=== PATIENT | female | born 1985 | race Caucasian/White ===

== ENCOUNTER 2025-02-05 12:28 | Emergency (ER) | payer MEDICAID ==
[~2025-02-05] VITALS: Ht 162.6 cm; Wt 99.2 kg
[2025-02-05 12:40] VITALS: TEMP 97.8
--- NOTE | 2025-02-05 12:49 | Physician Documentation ---
History of Present Illness ~ Chief Complaint: Cough Stated Complaint: COUGH Time Seen by MD: 13:38 HPI This is a 40-year-old female who presents to the emergency department reporting symptoms of illness for the last two months. These began with chest pain, shortness of breath, fever. She has had multiple COVID and flu tests that have been negative. She is concerned she may have valley fever, as she visits the area often. She feels otherwise well today, but the cough is persistent, keeps her up at night. Medication Reconciliation Allergies: Coded Allergies: No Known Allergies (Unverified , 02/05/25) Scheduled Benzonatate* (Benzonatate*), 1 CAP PO Q8H Guaifenesin (Mucinex), 1 TAB PO Q12H Scheduled PRN Albuterol Sulfate (Ventolin Hfa), 2 PUFFS INH Q4HPRN PRN for wheezing Review of Systems ROS As stated above in the HPI, otherwise all systems are reviewed and negative. Physical Exam General Appearance General: Alert, no apparent distress. HEENT: PERRL, EOMI, no injection, moist mucous membranes. Neck: Full range of motion. Respiratory: Lungs clear, no respiratory distress. Chest: No accessory muscle use. Cardiovascular: Regular rate and rhythm, no murmurs. Gastrointestinal: Soft, nontender, nondistended. Bowels sounds present. Extremities: Normal range of motion, no deformity. Neurologic: Oriented x4. Psychiatric: Normal mood and affect. Skin: Normal color, warm and dry. No edema, no ecchymosis. Progress Results/Orders Results/Orders Orders - LESLY JAMES RISK MODELER Chest,Two Views (02/05/25 12:54) Completed Orders - LESLY JAMES RISK MODELER Chest,Two Views (02/05/25 12:54) Vital Signs 02/05/25 02/05/25 02/05/25 12:40 13:40 13:40 Temp 97.8 Pulse 74 100 Resp 18 18 18 B/P (MAP) 143/76 118/76 (90) Pulse Ox 99 99 O2 Flow Rate 0 EKG/XRAY/CT/US/VASC/MRI Chest X-Ray : Additional Comments [address], [facility] [address] DIAGNOSTIC RADIOLOGY Patient: RAYNE EUGENE Medical Record: [id number] [facility] : 1985, Age: 40 Sex: Female Location: ER Patient Status: [facility] ER Service Date/Time: 02/05/25/ 1254 Ordering Physician: LESLY JAMES NP Exam: CHEST,TWO VIEWS CLINICAL HISTORY: cough x 2 mo TECHNIQUE: Chest 2 views of the chest were obtained. COMPARISON: None FINDINGS: The heart size and pulmonary vasculature are normal. The lungs are clear. No pleural effusion is present. IMPRESSION: NO ACUTE CARDIOPULMONARY PROCESS. Electronically Signed by:AMY CÁRDENAS MD Date & Time: 02/05/25 1301 Dictated by: AMY CÁRDENAS MD Dictation date and time: 02/05/25 1252 Primary Care Provider: NO PRIMARY CARE PROVIDER cc: LESLY JAMES RISK MODELER ~ Medical Decision Making Differential Dx:Considerations: Include: Allergic rhinitis, Influenza, Otitis media, Peritonsillar abscess, Pharyngitis-Diphtheria, Pharyngitis-Streptoccal, Pharyngitis-Viral, Pneumonia, Pnuemonitis, Sinusitis, URI Differential Diagnosis This is a 40-year-old female who presented to the emergency department due to concerns that she may have valley fever due to her frequent travels to the [place] area. Chest x-ray with no evidence of pneumonia. Discussed with the patient that while I can alleviate her cough with medications, I can not treat her for valley fever without the appropriate testing. This will need to go through her primary care provider. If it is valley fever, there was also a chance that the patient will improve without treatment. She is to follow up with the primary care provider or return if worse. Departure Time of Disposition: 13:38 Disposition: 01 HOME / SELF CARE / HOMELESS Impression: Primary Impression: Cough Condition: Stable Discharge Instructions: Cough, Adult Additional Instructions: Chest xray did not show pneumonia. Treatment of Valley fever involves a long course (4-6 weeks) of antifungal therapy. For this reason, testing is necessary to confirm this diagnosis. Some people recover and never need the medications. I am treating you for cough. See your primary care soon for Valley Fever testing. Return if worse. Referrals: NO PRIMARY CARE PROVIDER (PCP) Prescriptions Albuterol Sulfate (Ventolin Hfa) 90 Mcg Hfa.aer.ad 2 PUFFS INH Q4HPRN PRN for wheezing for 30 Days, #18 GM 0 Refills Prov: LESLY JAMES NP 02/05/25 Guaifenesin (Mucinex) 1,200 Mg Tbbp.12hr 1 TAB PO Q12H for cough for 15 Days, #30 TAB 0 Refills Prov: LESLY JAMES NP 02/05/25 Benzonatate* (Benzonatate*) 100 Mg Capsule 1 CAP PO Q8H for cough for 10 Days, #30 CAP Prov: LESLY JAMES NP 02/05/25 Education Educated: Patient Educated regarding: diagnosis, treatment, prognosis, need for follow up Signature Scribe Signature: x Attestation: The note accurately reflects work and decisions made by me.Lesly Hill NP 02/05/25 12:49 LESLY JAMES NP Feb 05, 2025 12:49
--- NOTE | 2025-02-05 13:03 | RADIOLOGY REPORT ---
CLINICAL HISTORY: cough x 2 mo TECHNIQUE: Chest 2 views of the chest were obtained. COMPARISON: None FINDINGS: The heart size and pulmonary vasculature are normal. The lungs are clear. No pleural effusion is pres ent. IMPRESSION: NO ACUTE CARDIOPULMONARY PROCESS.
[2025-02-05 13:40] VITALS: BP 118/76; PULSE 100; RESP 18; O2SAT 99
[2025-02-05] MEDS ORDERED: BENZ-38 PO (13:40)
[2025-02-05] MEDS ORDERED: ALBU18HF2 INH (13:40)
[2025-02-05] MEDS ORDERED: GUAI120015 PO (13:40)
== END 2025-02-05 14:12 | disposition home or self-care (01) ==
LOC: ER 12:30
DX: R05.9 Cough, unspecified (principal); R07.9 Chest pain, unspecified; Z79.899 Other long term (current) drug therapy
CPT/HCPCS: 71046; 99283